=== PATIENT | male | born 1970 | race Caucasian/White ===

== ENCOUNTER 2017-07-31 09:02 | Emergency (ER) | payer OTHER ==
[~2017-07-31] VITALS: Ht 203.2 cm; Wt 117.9 kg
--- NOTE | 2017-07-31 09:46 | ED SKIN/ALLERGY COMPLAINT ---
History of Present Illness General Chief Complaint: Animal/Insect Bite Stated Complaint: TICK BITE/LYME DISEASE SENT FOR FUTHER EVAL Source: patient Exam Limitations: no limitations Vital Signs & Intake/Output Vital Signs & Intake/Output Vital Signs Date Time Temp Pulse Resp B/P B/P Pulse O2 O2 Flow FiO2 Mean Ox Delivery Rate 07/31 1126 98.9 90 20 126/72 98 Room Air 07/31 1029 100.2 93 20 130/70 98 Room Air 07/31 0904 100.4 110 18 148/90 97 Room Air Allergies Coded Allergies: No Known Allergies (07/31/17) Reconcile Medications Doxycycline Hyclate 100 MG CAPSULE 1 CAP PO BID PRN ERYTHEMA MIGRANS Ketorolac Tromethamine 10 MG TABLET 1 TAB PO TID PRN INFLAMMATION Triage Note: 47 Y/O MALE SENT FROM [facility] FOR EVAL OF ? BUG BITE TO R SIDED ABDOMEN. PT REPORTS NOTICING SMALL MICHAELA 1 WEEK AGO WHICH HAS PROGRESSIVELY GOTTEN LARGER IN SIZE. RED AREA NOTED. NO DARK CENTER APPRECIATED. PT REPORTS FEELING "FEVERISH, LETHARGIC AND WEAK". TEMP 100.4 IN TRIAGE. Triage Nurses Notes Reviewed? yes Onset: Gradual Duration: getting worse Severity: moderate Severity Numbers: 5 HPI: Patient is a 47-year-old male with an unremarkable past medical history presents emergency room seen at approximately one week ago he noted a red rash of the skin to the right trunk region where he thought he was bit by "something" however he denies any tick bite specifically or specific insect or he states that since that redness has worsens where he has noted a bull's-eye shape to the redness where he was evaluated by urgent care facility today was advised to present to emergency room. Patient does complain of 24 history of generalized weakness fatigue and fevers. Denies any headache blurred vision neck pain neck stiffness sore throat cough nausea vomiting ([employer]) Past History Travel History Traveled to [place] past 21 day No Medical History Any Pertinent Medical History? 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 No ([employer]) Review of Systems Review of Systems Constitutional: Reports: see HPI, fever, malaise, weakness. EENTM: Reports: no symptoms. Respiratory: Reports: no symptoms. Cardiovascular: Reports: no symptoms. GI: Reports: no symptoms. Genitourinary: Reports: no symptoms. Musculoskeletal: Reports: no symptoms. Skin: Reports: see HPI. Neurological/Psychological: Reports: no symptoms. Hematologic/Endocrine: Reports: no symptoms. Immunologic/Allergic: Reports: no symptoms. All Other Systems: Reviewed and Negative (Justice Pride) Physical Exam Physical Exam General Appearance: no apparent distress, alert Head: atraumatic Eyes: Bilateral: normal appearance, PERRL, EOMI. Ears, Nose, Throat: normal pharynx, normal ENT inspection, hearing grossly normal Neck: normal inspection, full range of motion Respiratory: normal breath sounds, chest non-tender Cardiovascular: regular rate/rhythm Peripheral Pulses: 2+ radial (R) Gastrointestinal: normal bowel sounds, soft Extremities: normal inspection, no edema Neurologic/Psych: no motor/sensory deficits, awake, alert, oriented x 3, normal gait Skin: intact Diagram Body: 1) 12 CM X 5 CM oval shaped erythematous warm tender rash with [place]seye distribution No fluctuance no induration ([employer]) Progress Differential Diagnosis: abscess/cellulitis, allergic reaction, anaphylaxis, angioedema, contact dermatitis, drug reaction, lyme disease, meningitis/sepsis, RMSF, urticaria Plan of Care: Orders Procedure Date/time Status LACTIC ACID 07/31 950 Complete BLOOD CULTURE 07/31 945 Active LYME TITRE 07/31 945 Active COMPREHENSIVE METABOLIC PANEL 07/31 945 Complete CBC WITHOUT DIFFERENTIAL 07/31 945 Complete Laboratory Tests 07/31/17 1010: Lactic Acid 1.1 07/31/17 1010: Anion Gap 12, Estimated GFR > 60, BUN/Creatinine Ratio 11.7, Glucose 110 H, Calcium 9.2, Total Bilirubin 0.4, AST 34, ALT 44, Alkaline Phosphatase 63, Total Protein 6.7, Albumin 3.9, Globulin 2.8, Albumin/Globulin Ratio 1.4, CBC w Diff NO MAN DIFF REQ, RBC 5.05, MCV 87.4, MCH 29.5, MCHC 33.7, RDW 12.6, MPV 7.2 L, Gran % 76.0 H, Lymphocytes % 15.1 L, Monocytes % 8.7, Eosinophils % 0.1, Basophils % 0.1, Absolute Granulocytes 4.3, Absolute Lymphocytes 0.9 L, Absolute Monocytes 0.5, Absolute Eosinophils 0, Absolute Basophils 0, Lyme Disease Antibody Pending Microbiology 07/31 1010 BLOOD: Blood Culture - RECD 07/31 1000 BLOOD: Blood Culture - RECD Patient on initial examination and is resting comfortable at bedside alert and oriented negative Brudzinski negative Kernig's sign no concerns of meningitis at this time. The borders of the erythema was marked with a surgical pen Patient was given IV doxycycline and was strongly advised to follow-up with discharge instructions and plan. Fever resolved prior to discharge on discharge patient looks so no apparent distress and will comply with discharge instructions and had no questions ([employer]) Departure Departure Disposition: HOME OR SELF CARE Condition: Stable Clinical Impression Primary Impression: Erythema migrans (Lyme disease) Referrals: Jayjay JARA,Antonio Castorena (PCP/Family) Additional Instructions: As discussed return to emergency room in 2 days for recheck of symptoms, if symptoms worsen or if he develop any new concerning symptom return to emergency room. Begin the prescription of ketorolac for pain and inflammation begin over- the-counter Tylenol for fevers and begin the prescription of doxycycline for your symptoms. Follow-up this week with infectious disease specialist Dr. EDWARDS Departure Forms: Customer Survey General Discharge Information Prescriptions: Current Visit Scripts Ketorolac Tromethamine 1 TAB PO TID PRN INFLAMMATION #15 TAB Doxycycline Hyclate 1 CAP PO BID PRN ERYTHEMA MIGRANS #42 CAP ([employer]) PA/MERCERIZING RANGE FEEDER Co-Sign Statement Statement: ED Attending supervision documentation- I saw and evaluated the patient. I have also reviewed all the pertinent lab results and diagnostic results. I agree with the findings and the plan of care as documented in the PA's/MERCERIZING RANGE FEEDER's documentation. x I have reviewed the ED Record and agree with the PA's/MERCERIZING RANGE FEEDER's documentation. [] Additions or exceptions (if any) to the PAs/MERCERIZING RANGE FEEDER's note and plan are summarized below: [] (Yue JARA,Paulino)
[2017-07-31 10:32] LABS: ABSOLUTE BASOPHIL COUNT 0 /CUMM (0.0-0.2); ABSOLUTE EOSINOPHIL COUNT 0 /CUMM (0.0-0.7); ABSOLUTE GRANULOCYTE CT 4.3 /CUMM (1.4-6.5); ABSOLUTE LYMPH COUNT 0.9 /CUMM (1.2-3.4); ABSOLUTE MONOCYTE COUNT 0.5 /CUMM (0.10-0.60); BASOPHIL % 0.1 % (0.0-2.0); EOSINOPHIL % 0.1 % (0-5); HEMATOCRIT 44.1 % (42-52); MEAN CORPUSCULAR HGB 29.5 PG (27.0-31.0); MEAN CORPUSCULAR HGB CONC 33.7 G/DL (33.0-37.0); MEAN CORPUSCULAR VOLUME 87.4 FL (80.0-94.0); MEAN PLATELET VOLUME 7.2 FL (7.4-10.4); PLATELET COUNT 317 /CUMM (130-400); RBC DISTRIBUTION WIDTH 12.6 % (11.5-14.5); RED BLOOD CELL CT 5.05 /CUMM (4.70-6.10); WHITE BLOOD CELL COUNT 5.7 /CUMM (4.8-10.8)
[2017-07-31] MEDS ORDERED: DOXYCYCLINE HY100 M2 PO (10:51)
[2017-07-31] MEDS ORDERED: KETOROLAC TROME10 M1 PO (10:51)
[2017-07-31 11:26] VITALS: BP 126/72
== END 2017-07-31 11:27 ==
LOC: ERH 09:02
PROVIDERS: Physician Assistant
DX: A26.0 Cutaneous erysipeloid (principal)
CPT/HCPCS: 86618; 87040; 96361; 96365; 96375; J0131; J1885